=== PATIENT | female | born 1990 | race Caucasian/White ===

== ENCOUNTER 2023-12-10 12:07 | Emergency (ER) | payer BC, OTHER ==
[2023-12-10 12:22] VITALS: BP 124/94; PULSE 90; RESP 18; TEMP 97.7; BMI 30.3
[2023-12-10] MEDS ORDERED: LIDOCAINE 5% TOPICAL PATCH ONE (12:50)
[2023-12-10] MEDS ORDERED: IBUPROFEN 400 MG TABLET (FP) PO ONE (12:50)
[2023-12-10] MEDS ORDERED: ACETAMINOPHEN 325 MG TABLET (FP) PO ONE (13:05)
[2023-12-10 13:25] LABS: HCG,QUALITATIVE URINE Negative
[2023-12-10] MEDS: LIDOCAINE 5% TOPICAL PATCH TP ONE (14:01)
[2023-12-10] MEDS: IBUPROFEN 400 MG TABLET (FP) PO ONE (14:30)
[2023-12-10] MEDS ORDERED: LIDOCAINE PATCH REMOVAL MC ONE (22:00)
== END 2023-12-10 15:02 | disposition home or self-care (01) ==
LOC: FER 12:07
DX: M54.50 Low back pain, unspecified (principal)
CPT/HCPCS: 81003; 84703; 87086; 99283-25